=== PATIENT | male | born 1975 | race American Indian/Alaskan Native ===

== ENCOUNTER 2018-11-25 12:03 | Emergency (ER) | payer MEDICARE ==
--- NOTE | 2018-11-25 12:21 | Emergency Department Report ---
Blank Doc - Documentation Documentation: This is a 43-year-old male that presents with lac to back of the scalp s/p fall in the tube. Denies any LOC. Stated has neck pain and headache. This initial assessment/diagnostic orders/clinical plan/treatment(s) is/are subject to change based on patient's health status, clinical progression and re- assessment by fellow clinical providers in the ED. Further treatment and workup at subsequent clinical providers discretion. Patient/guardians urged not to elope from the ED as their condition may be serious if not clinically assessed and managed. Initial orders include: 1- Patient sent to [facility] for further evaluation and treatment 2- c-collar 3- CT head/neck
[2018-11-25 12:23] VITALS: BP 166/83
--- NOTE | 2018-11-25 13:32 | Cat Scan Report ---
CT BRAIN: 11/25/2018 INDICATION / CLINICAL INFORMATION: MAIN: headache and neck pain s/p fall lac to posterior no loc. COMPARISON: None available. FINDINGS: BRAIN/INTRACRANIAL STRUCTURES: Unenhanced CT images of the brain demonstrate no evidence of acute int racranial abnormality. Ventricles and sulci are normal in size and shape. There is no evidence of ischemic injury, hemorrhage, or mass. There are no abnormal extra-axial fluid collections. EXTRACRANIAL STRUCTURES: Unremarkable. IMPRESSION: No acute abnormality. All CT scans at this location are performed using dose reduction to ALARA by means of automated expos ure control. Signer Name: Gómez Washington MD Signed: 11/25/2018 1:27 PM Workstation Name: [id number]
--- NOTE | 2018-11-25 13:38 | Cat Scan Report ---
CT CERVICAL SPINE: 11/25/2018 INDICATION / CLINICAL INFORMATION: MAIN: headache and neck pain s/p fall lac to posterior . COMPARISON: None available. FINDINGS: Unenhanced CT images of the cervical spine demonstrate no evidence of acute abnormality. Body alignment is relatively well preserved, with some degenerative anterolisthesis present at the C2 -3 and C3-4 levels. Spinal soft tissues are unremarkable. CRANIOCERVICAL JUNCTION: Unremarkable. PARASPINAL STRUCTURES: Unremarkable. IMPRESSION: No acute abnormality. All CT scans at this location are performed using dose reduction to ALARA by means of automated expos ure control. Signer Name: Gómez Washington MD Signed: 11/25/2018 1:33 PM Workstation Name: [id number]
[2018-11-25] MEDS ORDERED: XYLOCAINE 1%/ EPI 1:100,000 INFILTRATI NR (14:00)
[2018-11-25] MEDS ORDERED: IBUPROFEN PO ONE (14:08)
[2018-11-25] MEDS ORDERED: NORCO 5/325 PO ONE (14:08)
--- NOTE | 2018-11-25 14:49 | XRay Report ---
LEFT ANKLE 3 VIEWS INDICATION: pain and swelling after fall lt ankle. COMPARISON: No relevant prior imaging study available. FINDINGS: There is a small avulsion fracture along the dorsal aspect of the navicular bone with slight proximal migration to the level of the talonavicular articulation. There is mild fracture involving the under lying dorsal navicular. Adjacent soft tissue swelling is noted. No additional fractures. Calcaneal enthesopathy is noted. IMPRESSION: 1. Dorsal navicular fracture, as above. Signer Name: Josr Adam MD Signed: 11/25/2018 2:45 PM Workstation Name: [email or web address]
--- NOTE | 2018-11-25 15:19 | Emergency Department Report ---
ED General Adult HPI - General Chief complaint: Fall Stated complaint: GASH BEHIND HEAD FROM FALL Time Seen by Provider: 11/25/18 12:18 Source: patient Mode of arrival: Ambulatory Limitations: No Limitations - History of Present Illness Initial comments: Patient is a 43-year-old -[place] male who suffered a fall at a hotel. Patient is in town from [place] visiting family. Patient was getting out of the shower and he slipped and fell in the tub. The patient's hit the back of his head. He states there was no loss of consciousness but he is having a headache as well as some neck discomfort. Patient suffered a laceration to the posterior scalp. Patient also is complaining of some left ankle and foot pain. Patient is having pain with her in weight. Pain is 9/10 for the ankle pain. Patient has a past history of hypertension diabetes and congestive heart failure. Severity scale (0 -10): 7 - Related Data Previous Rx's Medication Instructions Recorded Last Taken Type HYDROcodone/APAP 5-325 [[place] 1 each PO Q6HR PRN #14 tablet 11/25/18 Unknown Rx 5/325] Ibuprofen [Motrin 600 MG tab] 600 mg PO Q8H PRN #20 tablet 11/25/18 Unknown Rx Allergies Allergy/AdvReac Type Severity Reaction Status Date / Time No Known Allergies Allergy Unverified 11/25/18 12:23 ED Review of Systems ROS: Stated complaint: GASH BEHIND HEAD FROM FALL Other details as noted in HPI Comment: All other systems reviewed and negative ED Past Medical Hx - Past Medical History Previous Medical History?: Yes Hx Hypertension: Yes Hx Congestive Heart Failure: Yes Hx Diabetes: Yes - Surgical History Past Surgical History?: Yes Hx Pacemaker: Yes (defibrilator) - Social History Smoking Status: Never Smoker Substance Use Type: None - Medications Home Medications: Home Medications Medication Instructions Recorded Confirmed Last Taken Type HYDROcodone/APAP 5-325 [[place] 1 each PO Q6HR PRN #14 tablet 11/25/18 Unknown Rx 5/325] Ibuprofen [Motrin 600 MG tab] 600 mg PO Q8H PRN #20 tablet 11/25/18 Unknown Rx ED Physical Exam - General Limitations: No Limitations General appearance: alert, in no apparent distress - Head Head exam: Present: normocephalic. Absent: atraumatic - Expanded Head Exam Expanded 1 - Patient with a 3 cm laceration to the posterior scalp. - Eye Eye exam: Present: normal appearance, PERRL, EOMI - ENT ENT exam: Present: mucous membranes moist - Neck Neck exam: Present: normal inspection, tenderness, full ROM - Respiratory Respiratory exam: Present: normal lung sounds bilaterally. Absent: respiratory distress, wheezes, rales, rhonchi - Cardiovascular Cardiovascular Exam: Present: regular rate, normal rhythm. Absent: systolic murmur, diastolic murmur, rubs, gallop - GI/Abdominal GI/Abdominal exam: Present: soft, normal bowel sounds. Absent: distended, tenderness, guarding, rebound - Rectal Rectal exam: Present: deferred - Extremities Exam Extremities exam: Present: normal inspection - Expanded Lower Extremity Exam Left Ankle exam: Present: full ROM, tenderness, swelling Foot/Toe exam: Present: full ROM, tenderness, swelling. Absent: ecchymosis, deformity, erythema, amputation, foreign body, calcaneal tenderness - Back Exam Back exam: Present: normal inspection - Neurological Exam Neurological exam: Present: alert, oriented X3 - Psychiatric Psychiatric exam: Present: normal affect, normal mood - Skin Skin exam: Present: warm, dry, intact, normal color. Absent: rash ED Course Vital Signs 11/25/18 11/25/18 12:22 14:19 Temperature 97.8 F Pulse Rate 80 Respiratory 18 18 Rate Blood Pressure 166/83 O2 Sat by Pulse 100 Oximetry - Laceration /Wound Repair Posterior Head Wound Location: head Wound Length (cm): 3 Wound's Depth, Shape: linear Irrigated w/ Saline (ccs): 100 Betadine Prep?: Yes Anesthesia: Lidocaine w/ Epi Volume Anesthetic (ccs): 10 Wound Repaired With: sutures (attempted to staple the patient's wound however because of the location and the patient's girth unable to get the wound edges to pull together before Prolene sutures were) Suture Size/Type: proline Number of Sutures: 3 Layer Closure?: No ED Medical Decision Making - Radiology Data [facility] [address] [place] [address] XRay Report Signed Patient: REX OCONNOR MR#: [id number] : 1975 Acct:[id number] Age/Sex: 43 / M ADM Date: 11/25/18 Loc: ED Attending Dr: Ordering Physician: GUSTAVO AMOR MD Date of Service: 11/25/18 Procedure(s): XR ankle 3+V LT Accession Number(s): [id number] cc: GUSTAVO AMOR MD Fluoro Time In Minutes: LEFT ANKLE 3 VIEWS INDICATION: pain and swelling after fall lt ankle. COMPARISON: No relevant prior imaging study available. FINDINGS: There is a small avulsion fracture along the dorsal aspect of the navicular bone with slight proximal migration to the level of the talonavicular articulation. There is mild fracture involving the underlying dorsal navicular. Adjacent soft tissue swelling is noted. No additional fractures. Calcaneal enthesopathy is noted. IMPRESSION: 1. Dorsal navicular fracture, as above. [facility] [address] [place] [address] Cat Scan Report Signed Patient: REX OCONNOR MR#: [id number] : 1975 Acct:[id number] Age/Sex: 43 / M ADM Date: 11/25/18 Loc: ED Attending Dr: Ordering Physician: DELORIS MURDOCK NP Date of Service: 11/25/18 Procedure(s): CT head/brain wo con Accession Number(s): [id number] cc: DELORIS MURDOCK NP CT BRAIN: 11/25/2018 INDICATION / CLINICAL INFORMATION: MAIN: headache and neck pain s/p fall lac to posterior no loc. COMPARISON: None available. FINDINGS: BRAIN/INTRACRANIAL STRUCTURES: Unenhanced CT images of the brain demonstrate no evidence of acute intracranial abnormality. Ventricles and sulci are normal in size and shape. There is no evidence of ischemic injury, hemorrhage, or mass. There are no abnormal extra-axial fluid collections. EXTRACRANIAL STRUCTURES: Unremarkable. IMPRESSION: No acute abnormality. All CT scans at this location are performed using dose reduction to ALARA by means of automated exposure control. Signer Name: Gómez Washington MD Signed: 11/25/2018 1:27 PM Workstation Name: [id number] Transcribed By: AO Dictated By: Gómez Washington MD Electronically Authenticated By: Gómez Washington MD Signed Date/Time: 11/25/18 1327 [facility] [address] [place] [address] Cat Scan Report Signed Patient: REX OCONNOR MR#: [id number] : 1975 Acct:[id number] Age/Sex: 43 / M ADM Date: 11/25/18 Loc: ED Attending Dr: Ordering Physician: DELORIS MURDOCK NP Date of Service: 11/25/18 Procedure(s): CT cervical spine wo con Accession Number(s): [id number] cc: DELORIS MURDOCK NP CT CERVICAL SPINE: 11/25/2018 INDICATION / CLINICAL INFORMATION: MAIN: headache and neck pain s/p fall lac to posterior . COMPARISON: None available. FINDINGS: Unenhanced CT images of the cervical spine demonstrate no evidence of acute abnormality. Body alignment is relatively well preserved, with some degenerative anterolisthesis present at the C2-3 and C3-4 levels. Spinal soft tissues are unremarkable. CRANIOCERVICAL JUNCTION: Unremarkable. PARASPINAL STRUCTURES: Unremarkable. IMPRESSION: No acute abnormality. All CT scans at this location are performed using dose reduction to ALARA by means of automated exposure control. Signer Name: Gómez Washington MD Signed: 11/25/2018 1:33 PM Workstation Name: [id number] Transcribed By: HARRY Dictated By: Gómez Washington MD Electronically Authenticated By: Gómez Washington MD Signed Date/Time: 11/25/18 1333 - Medical Decision Making Patient is a 43-year-old black male who fell in the shower. Patient suffered a laceration to the posterior scalp. There is no intracranial bleeding present CT and there is no fractures to the C-spine. Wound was repaired. Patient also has a dorsal navicular bone fracture present. Patient placed in a splint. Patient will be discharged home with follow-up with orthopedics. Patient have the stitches removed in 1 week. Critical care attestation.: If time is entered above; I have spent that time in minutes in the direct care of this critically ill patient, excluding procedure time. ED Disposition Clinical Impression: Foot fracture, left Qualifiers: Encounter type: initial encounter Fracture type: closed Qualified Code(s): S92.902A - Unspecified fracture of left foot, initial encounter for closed fracture Closed head injury Qualifiers: Encounter type: initial encounter Qualified Code(s): S09.90XA - Unspecified injury of head, initial encounter Scalp laceration Qualifiers: Encounter type: initial encounter Qualified Code(s): S01.01XA - Laceration without foreign body of scalp, initial encounter Cervical strain Qualifiers: Encounter type: initial encounter Qualified Code(s): S16.1XXA - Strain of muscle, fascia and tendon at neck level, initial encounter Disposition: TO HOME OR SELFCARE Is pt being admited?: No Does the pt Need Aspirin: No Condition: Stable Instructions: Muscle Strain (ED), Foot Fracture in Adults (ED), Suture Care (ED), Laceration (ED), Minor Head Injury (ED) Referrals: PRIMARY CARE, [Primary Care Provider] - 3-5 Days Time of Disposition: 15:22
== END 2018-11-25 15:42 | disposition home or self-care (01) ==
LOC: ED 12:03
DX: S92.902A Unspecified fracture of left foot, initial encounter for closed fracture (principal); S16.1XXA Strain of muscle, fascia and tendon at neck level, initial encounter; S01.01XA Laceration without foreign body of scalp, initial encounter; I11.0 Hypertensive heart disease with heart failure; I50.9 Heart failure, unspecified; E11.9 Type 2 diabetes mellitus without complications; Z95.0 Presence of cardiac pacemaker; W01.198A Fall on same level from slipping, tripping and stumbling with subsequent striking against other object, initial encounter; Y93.89 Activity, other specified; Y92.59 Other trade areas as the place of occurrence of the external cause; Y99.8 Other external cause status
CPT/HCPCS: 70450; 72125